=== PATIENT | female | born 1995 | race Caucasian/White ===

== ENCOUNTER → 2017-06-14 | Outpatient (CLI) | payer BC ==
[~2017-06-14] MED LIST: DICY10CA55 PO; ONDA8TAB62 SL
== END | disposition home or self-care (01) ==
LOC: C.LABBFT 09:56
PROVIDERS: ATTEND Nurse Practitioner Pediatrics
DX: K52.9 Noninfective gastroenteritis and colitis, unspecified (principal)

== ENCOUNTER 2017-06-26 15:20 | Emergency (ER) | payer BC ==
[~2017-06-26] VITALS: Ht 157.5 cm; Wt 77.2 kg
[2017-06-26 15:39] VITALS: BP 133/78; PULSE 87; TEMP 36.9; O2SAT 99; Ht 157.5 cm; Wt 77.2 kg
[2017-06-26 16:11] LABS: PREG INTERNAL NEGATIVE QC NEG CLEAR BACKGROUND; PREG INTERNAL POSITIVE QC POS CONTROL LINE
[2017-06-26 16:12] LABS: URINE APPEARANCE CLEAR (CLEAR); URINE BILIRUBIN NEG (NEG); URINE COLOR YELLOW; URINE NITRITE NEG (NEG); URINE SPECIFIC GRAVITY 1.008 (1.000-1.030); UROBILINOGEN NEG (NEG); ZZUR CULT IF INDIC CLEAN CATCH NO
[2017-06-26 16:30] LABS: MANUAL MICROSCOPIC REQUIRED? YES; REVIEW REQ? NO
[2017-06-26 16:56] LABS: URINE BACTERIA NEG (NEG); URINE RBC 0-4 /hpf (0-4); URINE WBC 0 /hpf (0-5)
[2017-06-27] MEDS ORDERED: ONDA8TAB62 SL (09:32)
[2017-06-27] MEDS ORDERED: DICY10CA55 PO (09:32)
== END 2017-06-26 17:35 | disposition left against medical advice (07) ==
LOC: C.EDB 15:22 → C.EDC 17:35
DX: Z53.21 Procedure and treatment not carried out due to patient leaving prior to being seen by health care provider (principal)

== ENCOUNTER 2017-06-27 08:34 | Emergency (ER) | payer BC ==
[~2017-06-27] VITALS: Ht 157.5 cm; Wt 77.2 kg
[2017-06-27 08:38] VITALS: TEMP 36.9; Ht 157.5 cm; Wt 77.2 kg
[2017-06-27] MEDS ORDERED: ONDANSETRON INJ 2 MG/ML 2 ML VIAL IV STA (09:12)
[2017-06-27] MEDS ORDERED: SODIUM CHLORIDE 0.9% 1000ML 1,000 ML IV STA (09:12)
[2017-06-27] MEDS ORDERED: MoRPHine SULFATE 10 MG/ML CARP/VIAL IV PRN (09:15)
[2017-06-27] MEDS ORDERED: OPTIRAY 320 IV PRN (09:30)
[2017-06-27] MEDS ORDERED: DICY10CA55 PO (09:32)
[2017-06-27] MEDS ORDERED: ONDA8TAB62 SL (09:32)
[2017-06-27 09:37] LABS: BASO % 0.2 %; BASO ABS # 0.01 K/uL (0-0.2); COMPLETE YES; EOS % 1.4 %; IG% 0.2 %; LYMPH % 36.6 %; LYMPH ABS # 2.43 K/uL (1.2-3.4); MEAN CELL VOLUME 85.6 fL (80-100); MEAN CORPUSCULAR HEMOGLOBIN 28.4 pg (25-34); MEAN CORPUSCULAR HGB CONC 33.2 g/dl (32-36); MEAN PLATELET VOLUME 9.9 fL (7.4-10.4); MONO % 6.3 %; NEUT % 55.3 %; PLATELET COUNT 388 K/uL (130-400); RED BLOOD COUNT 4.79 M/uL (4.2-5.4); WHITE BLOOD COUNT 6.64 K/uL (4.8-10.8)
[2017-06-27 09:47] LABS: URINE APPEARANCE CLEAR (CLEAR); URINE BILIRUBIN NEG (NEG); URINE COLOR YELLOW; URINE NITRITE NEG (NEG); URINE PH 7.5 (4.5-7.5); URINE SPECIFIC GRAVITY 1.009 (1.000-1.030); UROBILINOGEN NEG (NEG)
[2017-06-27 09:51] LABS: MANUAL MICROSCOPIC REQUIRED? NO; REVIEW REQ? NO
[2017-06-27 09:57] LABS: ALT/SGPT 44 U/L (12-78); BLOOD UREA NITROGEN 9 mg/dl (7-18); CALCIUM 9.6 mg/dl (8.5-10.1); CARBON DIOXIDE 29 mmol/L (21-32); CHLORIDE 104 mmol/L (98-107); CREATININE 0.91 mg/dl (0.60-1.20); GLUCOSE 100 mg/dl (70-99); POTASSIUM 3.9 mmol/L (3.5-5.1); SODIUM 137 mmol/L (136-145)
[2017-06-27 10:00] LABS: ALKALINE PHOSPHATASE 82 U/L (45-117); AST/SGOT 21 U/L (15-37)
--- NOTE | 2017-06-27 12:14 | DIAGNOSTIC IMAGING REPORT ---
CT ABD/PELVIS IV AND ORAL CONT CLINICAL HISTORY: Left-sided abdominal pain, nausea, vomiting, diarrhea. COMPARISON STUDY: None. TECHNIQUE: Following the IV administration of 93 mL of Optiray-320, CT scan of the abdomen and pelvis was performed from the lung bases to the proximal femurs. Images are reviewed in the axial, sagittal, and coronal planes. IV contrast was administered without complication. A dose lowering technique was utilized adhering to the principles of ALARA. CT DOSE: 801.61 mGycm FINDINGS: Lower chest: The heart is normal in size and configuration, without pericardial effusion. The lung bases and pleural spaces are clear. Liver: The contrast-enhanced liver is normal in size, contour, and attenuation. There is no intrahepatic biliary ductal dilatation. The hepatic veins and portal veins are patent. Gallbladder: Unremarkable. Spleen: Normal in size and attenuation. Pancreas: Unremarkable. Adrenal glands: Unremarkable. Kidneys: There is symmetric renal cortical enhancement. The kidneys are normal in size without hydronephrosis. Bowel: There are no transition zones indicate bowel obstruction. The appendix appears normal. There is no acute diverticulitis. Borderline wall thickening left colon, likely secondary to a nondistended segment Peritoneum: There is trace free pelvic fluid likely physiologic. No free air is visualized. Vasculature: The abdominal aorta is normal in course and caliber. Adenopathy: None. Pelvic viscera: The bladder, and pelvic viscera are unremarkable. Skeletal structures: No destructive osseous lesions are seen. IMPRESSION: 1. No acute intra-abdominal or pelvic findings 2. No evidence of bowel obstruction. No evidence of free air 3. Normal appendix. No evidence of acute diverticulitis. Electronically signed by: Zain Smith M.D. 06/27/2017 12:13 PM Dictated Date/Time: 06/27/2017 12:09 PM
[2017-06-27 13:00] VITALS: BP 128/77; PULSE 82; O2SAT 99
--- NOTE | 2017-06-27 17:18 | EMERGENCY ROOM VISIT NOTE ---
ED Visit Note First contact with patient: 08:41 Chief Complaint: Abdominal pain. History of Present Illness: Ms. Mejia is a set 22 year-old white female complaining of left mid to lower quadrant abdominal pain. Historically patient reports significant gastrointestinal diseases or abdominal surgeries Patient reports a ongoing nausea with one episode of vomiting that started 3 weeks ago typically in the morning hours. She describes her vomitus is clear water. Then 2 weeks ago she developed left middle quadrant to left lower quadrant abdominal pain. She does report her pain has been constant but has gradually increased in intensity. She is seen and new car get ready mechanic for her symptoms and she has been placed on Bentyl and Zofran and has had no relief of her discomfort but controlled her nausea. She is currently describing her pain as a sharp and stabbing sensation. She rates her discomfort 7/10. Her pain is nonradiating. Her pain worsens with flexion at the waist. She has not identified any alleviating factors related to the pain. She has not used any medications for her symptoms except those prescribed by the new car get ready mechanic. Associated with her pain she is also been having intermittent diarrhea with up to 4 bowel movements per day. She describes her diarrhea as a light soft stool without bright red blood or melena. Patient denies fevers, chills, sweats, skin eruptions, skin color changes, upper respiratory tract symptoms, shortness of breath, chest pain, decreased appetite, recent travel, recent antibiotic use, urinary symptoms, hematuria, vaginal bleeding, vaginal discharge, back/flank pain. Review of Systems: As noted above in history of present illness. All body systems were reviewed and found to be negative as noted above. Past Medical History: Bronchitis. Current Medications: As previously noted. Allergies to Medications: Patient denies. Social History: Patient is currently employed; she feels safe in her home environment; she admits to tobacco and alcohol use. Physical Examination: Vital Signs: Date Time Temp Pulse Resp B/P (MAP) Pulse Ox O2 Delivery O2 Flow Rate FiO2 06/27/17 13:00 82 20 128/77 99 06/27/17 11:55 88 18 135/81 97 Room Air 06/27/17 10:05 85 18 133/83 100 Room Air 06/27/17 08:38 36.9 92 20 141/86 99 Room Air GENERAL: 22-year-old female in mild distress due to pain, nontoxic-appearing, afebrile and hemodynamically stable. NEUROLOGICAL: Awake, alert and oriented to person, place and time. Answering questions appropriately and following commands. Normal gait. Good hand eye coordination. SKIN: Warm, dry and pink. No soft tissue eruptions or trauma noted. HEENT: Atraumatic and normocephalic. PERRLA. Sclera white and conjunctiva pink. Oral cavity moist and pink. Trachea midline. No jugular venous distention. BACK: No tenderness over the bony spine. No CVA tenderness. THORAX: Lungs sounds are clear to auscultation and equal bilaterally with symmetrical chest wall. HEART: Regular rate and rhythm. No gallops, rubs or murmurs are appreciated. ABDOMEN: Flat, soft and nontender. Positive bowel sounds in all quadrants. No guarding, rigidity or organomegaly. EXTREMITIES: Moves all extremities well on command and with purpose. All distal neurovascular statuses are intact and equal bilaterally. ED Course: Patient is assessed as noted above. Patient's medication list was reviewed. Laboratory Testing: Test 06/27/17 08:48 06/27/17 09:20 Range/Units Urine Color YELLOW Urine Appearance CLEAR CLEAR Urine pH 7.5 4.5-7.5 Urine Specific [place] 1.009 1.000-1.030 Urine Protein NEG NEG Urine Glucose (UA) NEG NEG Urine Ketones NEG NEG Urine Occult Blood NEG NEG Urine Nitrite NEG NEG Urine Bilirubin NEG NEG Urine Urobilinogen NEG NEG Urine Leukocyte Esterase NEG NEG Urine Test NEG NEG White Blood Count 6.64 4.8-10.8 K/uL Red Blood Count 4.79 4.2-5.4 M/uL Hemoglobin 13.6 12.0-16.0 g/dL Hematocrit 41.0 37-47 % Mean Corpuscular Volume 85.6 80-100 fL Mean Corpuscular Hemoglobin 28.4 25-34 pg Mean Corpuscular Hemoglobin Concent 33.2 32-36 g/dl Platelet Count 388 130-400 K/uL Mean Platelet Volume 9.9 7.4-10.4 fL Neutrophils (%) (Auto) 55.3 % Lymphocytes (%) (Auto) 36.6 % Monocytes (%) (Auto) 6.3 % Eosinophils (%) (Auto) 1.4 % Basophils (%) (Auto) 0.2 % Neutrophils # (Auto) 3.68 1.4-6.5 K/uL Lymphocytes # (Auto) 2.43 1.2-3.4 K/uL Monocytes # (Auto) 0.42 0.11-0.59 K/uL Eosinophils # (Auto) 0.09 0-0.5 K/uL Basophils # (Auto) 0.01 0-0.2 K/uL RDW Standard Deviation 40.3 36.4-46.3 fL RDW Coefficient of Variation 12.8 11.5-14.5 % Immature Granulocyte % (Auto) 0.2 % Immature Granulocyte # (Auto) 0.01 0.00-0.02 K/uL Sodium Level 137 136-145 mmol/L Potassium Level 3.9 3.5-5.1 mmol/L Chloride Level 104 98-107 mmol/L Carbon Dioxide Level 29 21-32 mmol/L Anion Gap 4.0 3-11 mmol/L Blood Urea Nitrogen 9 7-18 mg/dl Creatinine 0.91 0.60-1.20 mg/dl Est Creatinine Clear Calc Drug Dose 94.1 ml/min Estimated GFR () 104.5 Estimated GFR (Non- 90.2 BUN/Creatinine Ratio 10.0 10-20 Random Glucose 100 70-99 mg/dl Calcium Level 9.6 8.5-10.1 mg/dl Total Bilirubin 0.2 0.2-1 mg/dl Direct Bilirubin < 0.1 0-0.2 mg/dl Aspartate Amino Transf (AST/SGOT) 21 15-37 U/L Alanine Aminotransferase (ALT/SGPT) 44 12-78 U/L Alkaline Phosphatase 82 45-117 U/L Total Protein 8.6 6.4-8.2 gm/dl Albumin 4.2 3.4-5.0 gm/dl Lipase 94 73-393 U/L Contrast Abdominal/Pelvic CT: Was reviewed by myself and read by the radiologist showing no acute intra-abdominal or pelvic findings, no evidence of bowel obstruction, free air or acute diverticulitis. Normal-appearing appendix. Patient was hydrated with normal saline, she received 4 mg of morphine IV for pain and 4 mg of Zofran IV. Patient was reassessed multiple times during her stay in the emergency department. Patient's case was reviewed with Dr. Miles; we agreed on diagnostic approach , treatment, disposition and plan. Patient was educated about today's findings and instructed on her treatment plan ; she verbalizes understanding and agreement with this plan. Clinical Impression: Left lower quadrant abdominal pain. Vomiting and diarrhea. Decision-Making: Initially my differential diagnosis I considered constipation, diverticulitis, colitis, perforated viscus, ectopic , kidney stone, musculoskeletal disorder and other causes. Disposition: Patient discharged home in stable condition accompanied by her mother; prior to departure she was reassessed and subjectively reported she was feeling better and rated her overall discomfort 3/10. She was no longer nauseated and had no additional episodes of diarrhea. Patient should be noted she brought stool specimen into the ED and they were sent to the lab for outpatient evaluation by the new car get ready mechanic. Plan: Patient was encouraged to continue her current medications as prescribed by the new car get ready mechanic. Patient was encouraged use ibuprofen 650 mg every 6 hours as needed for pain. Patient was encouraged to bland diet for the next 48 hours and avoid stomach irritants. Patient was encouraged to follow-up with her new car get ready mechanic for specialty care and treatment in her stool culture results. Patient was encouraged return ED for worsening/uncontrolled pain, worsening vomiting/diarrhea, bloody stools, fevers or any new/concerning symptoms.
== END 2017-06-27 13:00 | disposition home or self-care (01) ==
LOC: C.EDB 08:36
DX: R10.32 Left lower quadrant pain (principal); R11.10 Vomiting, unspecified; R19.7 Diarrhea, unspecified; F17.200 Nicotine dependence, unspecified, uncomplicated

== ENCOUNTER → 2017-06-27 | Outpatient (CLI) | payer BC ==
[2017-07-02 15:48] LABS: CRYPTOSPORIDIUM AG TC 37213 NOT DETECTED (NOT DETECTED); O&P GIARDIA AG NOT DETECTED (NOT DETECTED); O&P SOURCE OTHER-STOOL
== END | disposition home or self-care (01) ==
LOC: C.LABSPEC 10:30
PROVIDERS: ATTEND Physician Assistant
DX: R19.7 Diarrhea, unspecified (principal)

== ENCOUNTER → 2017-07-01 | Outpatient (CLI) | payer BC ==
[2017-07-05 21:38] LABS: IGA SERUM 282 mg/dL (81-463); TIS TRANS IGA 1 U/mL (<4)
== END | disposition home or self-care (01) ==
LOC: C.LABBFT 08:51
PROVIDERS: ATTEND Physician Assistant
DX: R19.7 Diarrhea, unspecified (principal)

== ENCOUNTER → 2017-07-01 | Outpatient (CLI) | payer BC ==
--- NOTE | 2017-07-01 07:39 | DIAGNOSTIC IMAGING REPORT ---
ULTRASOUND ABDOMEN COMPLETE CLINICAL HISTORY: Nausea. Generalized abdominal pain. COMPARISON STUDY: Abdominal CT dated 06/27/2017. TECHNIQUE: Real-time, grayscale, and color flow sonography of the abdomen was performed. Images are reviewed in the transverse and longitudinal planes. FINDINGS: Liver: The liver is normal in size and echotexture. There is no intrahepatic biliary ductal dilatation. The main portal vein is patent. Gallbladder: The gallbladder is normal in appearance. No gallstones are identified. There is no gallbladder wall thickening or pericholecystic fluid. A sonographic Anand's sign is reportedly absent. The common bile duct measures up to 0.4 cm in diameter. Pancreas: Visualized portions of the pancreatic head and body are normal in appearance. Spleen: The spleen is normal in size and echotexture, measuring 11.4 cm in length. Kidneys: The kidneys are normal in size and echotexture. There is no hydronephrosis. The right kidney measures 8.8 cm in length and the left kidney measures 9.6 cm in length. No shadowing calculi are identified. Abdominal vasculature: Visualized portions of the abdominal aorta and IVC are normal in appearance. Ascites: None. IMPRESSION: Unremarkable sonographic assessment of the abdomen. Electronically signed by: Christopher Amaro M.D. 07/01/2017 7:38 AM Dictated Date/Time: 07/01/2017 7:36 AM
== END | disposition home or self-care (01) ==
LOC: C.ULTR 07:10
PROVIDERS: ATTEND Physician Assistant
DX: R11.0 Nausea (principal); R10.9 Unspecified abdominal pain

== ENCOUNTER → 2017-07-11 | Day surgery (SDC) | payer BC ==
[2017-07-07 08:03] VITALS: BMI 31.0
[~2017-07-11] VITALS: Ht 157.5 cm; Wt 77.7 kg
[~2017-07-11] MED LIST changes: +LIDOCAINE HCL 2% 2 ML VIAL (20MG/ML) ONE; +MIDAZOLAM HCL 1 MG/ML 2ML VIAL ONE; +PROPOFOL IV EMULSION 10 MG/ML 20 ML VIAL IV ONE; +SODIUM CHLORIDE 0.9% 500ML 500 ML IV ONE
[2017-07-11 12:50] VITALS: Ht 157.5 cm; Wt 77.7 kg
--- NOTE | 2017-07-11 13:04 | Endo History and Physical ---
History & Physical Date of Service: Jul 11, 2017. Chief Complaint: ABDOMINAL PAIN, DIARRHEA, NAUSEA Referring Physician: DR MICA OG History of Present Illness 22 yo CF who presents for EGD and colonoscopy secondary to abdominal pain, nausea, and diarrhea. Past Surgical History Hx Cardiac Surgery: No Hx Internal Defibrillator: No Hx Pacemaker: No Hx Abdominal Surgery: No Hx of Implantable Prosthesis: No Hx Cancer Surgery: No Hx Thoracic Surgery: No Hx Orthopedic: No Hx Urinary Tract Surgery: No Family History None Social History Smoking Status: Current Every Day Smoker Hx Substance Use: No Hx Alcohol Use: Yes (OCCASIONAL/SOCIAL) Allergies Coded Allergies: NO KNOWN DRUG ALLERGIES (Verified Allergy, Unknown, ., 07/07/17) [place] (Verified Allergy, Unknown, vomiting , 07/11/17) Current Medications Reported Home Medications Medications Dose Route/Sig Max Daily Dose Days Date Category Zofran Odt (Ondansetron HCl) 8 Mg Soltab 4 Mg SL Q4 PRN 06/27/17 Reported Bentyl (Dicyclomine Hcl) 10 Mg Cap 10 Mg PO Q6 06/27/17 Reported Vital Signs Weight (Kilograms): 77.73 Height (Feet): 5 Height (Inches): 2 Date Time Temp Pulse Resp B/P (MAP) Pulse Ox O2 Delivery O2 Flow Rate FiO2 07/11/17 12:48 36.8 106 16 127/76 (93) 99 Room Air Physical Exam General Appearance: WD/WN, no apparent distress Respiratory/Chest: Auscultation: breath sounds normal Cardiovascular: Heart Auscultation: RRR Abdomen: Bowel Sounds: normal Inspection & Palpation: soft, non-distended, no tenderness, guarding & rebound Assessment and Plan Assessment: 22 yo CF who presents for EGD and colonoscopy secondary to abdominal pain, nausea, and diarrhea. Plan: Proceed with EGD and colonoscopy.
--- NOTE | 2017-07-11 13:30 | Discharge Instructions ---
Endoscopy Patient Instructions Date / Procedure(s) Performed Jul 11, 2017. Colonoscopy, EGD Allergy Information Coded Allergies: NO KNOWN DRUG ALLERGIES (Verified Allergy, Unknown, ., 07/07/17) [place] (Verified Allergy, Unknown, vomiting , 07/11/17) Discharge Date / Findings Jul 11, 2017. EGD: Gastritis s/p biopsies, Duodenal biopsies Colonoscopy: Random Colon biopsies, Stool aspirate collected Medication Instructions 1) Start Omeprazole 20mg by mouth each morning 1/2 hour prior to breakfast. 2) OK to resume all medications today as prescribed Reported Home Medications Medications Dose Route/Sig Max Daily Dose Days Date Category Zofran Odt (Ondansetron HCl) 8 Mg Soltab 4 Mg SL Q4 PRN 06/27/17 Reported Bentyl (Dicyclomine Hcl) 10 Mg Cap 10 Mg PO Q6 06/27/17 Reported Provider Instructions Activity Restrictions - No exercising or heavy lifting for 24 hours. - Do not drink alcohol the day of the procedure. - Do not drive a car or operate machinery until the day after the procedure. - Do not make any important decisions or sign important papers in 24 hours after the procedure. Following Day: - Return to full activity which may include returning to work/school. Diet Start your diet with liquids and light foods (jello, soup, juice, toast). Then eat your usual diet if not nauseated. Treatment For Common After Affects For mild abdominal pain, bloating, or excessive gas: - Rest - Eat lightly - Lie on right side Follow-Up Information Follow-up with DR MICA OG as scheduled Anesthesia Information What You Should Know You have had a procedure that required some medicine to reduce anxiety and discomfort. This treatment is called moderate sedation. After receiving the treatment, you may be sleepy, but you will be able to breathe on your own. The effects of the treatment may last for several hours. Follow these instructions along with Activity/Diet recommendations noted above: * Do NOT do anything where dizziness or clumsiness would be dangerous. * Rest quietly at home today, then you can be up and about tomorrow. * Have a responsible person stay with you the rest of today. * You may have had an I.V. today. If so, you may take the dressing off later today. Recommendations Call your doctor if: * Trouble breathing * Continuous vomiting for more than 24 hours * Temperature above 101 degrees * Severe abdominal pain or bloating * Pain not relieved by pain medicine ordered * There is increased drainage or redness from any incision * A large amount of rectal bleeding greater than 2-3 tablespoons. (If you had a polyp/s removed or have hemorrhoids, a small amount of blood - from the rectum is to be expected.) * You have any unanswered questions or concerns. IN THE EVENT OF A SERIOUS EMERGENCY, GO TO THE NEAREST EMERGENCY ROOM Your discharge instructions were prepared by provider Tom Perry. Patient Instructions Signature Page Kateryna Mejia Patient (or Guardian) Signature/Date: I have read and understand the instructions given to me by my caregivers. Caregiver/RN/Doctor Signature/Date: The above-named patient and/or guardian has received patient instructions on this date. + Original Patient Signature Page (only) stays with chart. Please make copy for patient.
--- NOTE | 2017-07-11 13:34 | GI REPORT ---
Procedure Date: 07/11/2017 1:06 PM Procedure: Upper GI endoscopy Indications: Epigastric abdominal pain Medicines: Monitored Anesthesia Care Complications: No immediate complications. Estimated Blood Loss: Estimated blood loss: none. Procedure: Pre-Anesthesia Assessment: - Prior to the procedure, a History and Physical was performed, and patient medications and allergies were reviewed. The patient's tolerance of previous anesthesia was also reviewed. The risks and benefits of the procedure and the sedation options and risks were discussed with the patient. All questions were answered, and informed consent was obtained. Prior Anticoagulants: The patient has taken no previous anticoagulant or antiplatelet agents. ASA Grade Assessment: II - A patient with mild systemic disease. After reviewing the risks and benefits, the patient was deemed in satisfactory condition to undergo the procedure. After obtaining informed consent, the endoscope was passed under direct vision. Throughout the procedure, the patient's blood pressure, pulse, and oxygen saturations were monitored continuously. The scope was introduced through the mouth, and advanced to the second part of duodenum. The upper GI endoscopy was accomplished without difficulty. The patient tolerated the procedure well. Findings: The esophagus was normal. Localized mild inflammation characterized by erythema was found in the gastric antrum. Biopsies were taken with a cold forceps for histology. The examined duodenum was normal. Biopsies for histology were taken with a cold forceps for evaluation of celiac disease. Impression: - Normal esophagus. - Gastritis. Biopsied. - Normal examined duodenum. Biopsied. Recommendation: - Resume previous diet. - Continue present medications. - Await pathology results. - Return to GI office as previously scheduled. Tom Perry DO 07/11/2017 1:33:57 PM This report has been signed electronically. Note Initiated On: 07/11/2017 1:06 PM I attest to the content of the Intraoperative Record and orders documented therein, exceptions below
--- NOTE | 2017-07-11 13:36 | GI REPORT ---
Procedure Date: 07/11/2017 1:15 PM Procedure: Colonoscopy Indications: Chronic diarrhea Medicines: Monitored Anesthesia Care Complications: No immediate complications. Estimated Blood Loss: Estimated blood loss: none. Procedure: Pre-Anesthesia Assessment: - Prior to the procedure, a History and Physical was performed, and patient medications and allergies were reviewed. The patient's tolerance of previous anesthesia was also reviewed. The risks and benefits of the procedure and the sedation options and risks were discussed with the patient. All questions were answered, and informed consent was obtained. Prior Anticoagulants: The patient has taken no previous anticoagulant or antiplatelet agents. ASA Grade Assessment: II - A patient with mild systemic disease. After reviewing the risks and benefits, the patient was deemed in satisfactory condition to undergo the procedure. After I obtained informed consent, the scope was passed under direct vision. Throughout the procedure, the patient's blood pressure, pulse, and oxygen saturations were monitored continuously. The scope was introduced through the anus and advanced to the terminal ileum. The colonoscopy was performed without difficulty. The patient tolerated the procedure well. The quality of the bowel preparation was good. The terminal ileum, ileocecal valve, appendiceal orifice, and rectum were photographed. Findings: The colon (entire examined portion) appeared normal. Several random biopsies were obtained with cold forceps for histology in the entire colon. Fluid aspiration for cytology was performed. Impression: - The entire examined colon is normal. Fluid aspiration performed. - Several random biopsies were obtained in the entire colon. Recommendation: - Resume previous diet. - Continue present medications. - Repeat colonoscopy for surveillance based on pathology results. - Return to primary care physician as previously scheduled. Tom Perry, 07/11/2017 1:35:42 PM This report has been signed electronically. Note Initiated On: 07/11/2017 1:15 PM I attest to the content of the Intraoperative Record and orders documented therein, exceptions below
[2017-07-11 13:59] VITALS: BP 121/69; PULSE 86; O2SAT 97
--- NOTE | 2017-07-11 13:59 | Anesthesiology Progress Note ---
Anesthesia Post Op Note Date & Time Jul 11, 2017 at 13:58 Vital Signs Pain Intensity: 0 Vital Signs Past 12 Hours Date Time Temp Pulse Resp B/P (MAP) Pulse Ox O2 Delivery O2 Flow Rate FiO2 07/11/17 13:44 91 18 128/80 (96) 96 Room Air 07/11/17 13:29 114 18 115/70 (85) 96 Room Air 07/11/17 12:48 36.8 106 16 127/76 (93) 99 Room Air Notes Mental Status: alert / awake / arousable, participated in evaluation Pt Amnestic to Procedure: Yes Nausea / Vomiting: adequately controlled Pain: adequately controlled Airway Patency, RR, SpO2: stable & adequate BP & HR: stable & adequate Hydration State: stable & adequate Anesthetic Complications: no major complications apparent
[2017-07-14 17:22] LABS: O&P GIARDIA AG NOT DETECTED (NOT DETECTED)
== END | disposition home or self-care (01) ==
LOC: C.GI 12:19
PROVIDERS: ATTEND Internal Medicine
DX: K52.9 Noninfective gastroenteritis and colitis, unspecified (principal); K29.50 Unspecified chronic gastritis without bleeding; F17.200 Nicotine dependence, unspecified, uncomplicated; Z79.899 Other long term (current) drug therapy

== ENCOUNTER → 2017-07-15 | Outpatient (CLI) | payer BC ==
[~2017-07-15] MED LIST changes: -LIDOCAINE HCL 2% 2 ML VIAL (20MG/ML) ONE; -MIDAZOLAM HCL 1 MG/ML 2ML VIAL ONE; -PROPOFOL IV EMULSION 10 MG/ML 20 ML VIAL IV ONE; +SINCALIDE INJ 1.6 MCG in SODIUM CHLORIDE 0.9% 100ML 100 ML IV ONE; -SODIUM CHLORIDE 0.9% 500ML 500 ML IV ONE
--- NOTE | 2017-07-15 10:24 | DIAGNOSTIC IMAGING REPORT ---
NUCLEAR HEPATOBILIARY SCAN WITH EJECTION FRACTION IMAGING CLINICAL HISTORY: Diarrhea. Right upper quadrant abdominal pain. COMPARISON STUDY: Abdominal ultrasound dated 07/01/2017. TECHNIQUE: Dynamic images of the liver and anterior abdomen were obtained every 5 minutes for a total of 60 minutes following the IV administration of 5.5mCi of technetium 99m Choletec. 1.6 mcg of sincalide was then injected with additional images acquired every 5 minutes for 45 minutes to calculate the gallbladder ejection fraction. FINDINGS: The hepatobiliary scan shows prompt and homogeneous hepatic uptake. There is visualized activity within the intra and extrahepatic biliary tree at 10 minutes, and within the gallbladder at 10 minutes. There is normal biliary to bowel transit, with small bowel visualized by 35 minutes. On the sincalide imaging, the gallbladder ejection fraction was measured at 89%. IMPRESSION: 1. Unremarkable nuclear hepatobiliary scan. There is no scintigraphic evidence of cholecystitis. 2. The gallbladder ejection fraction measured 89% which is normal. Electronically signed by: Christopher Amaro M.D. 07/15/2017 10:22 AM Dictated Date/Time: 07/15/2017 10:20 AM
== END | disposition home or self-care (01) ==
LOC: C.NUCL 07:35
PROVIDERS: ATTEND Physician Assistant
DX: R19.7 Diarrhea, unspecified (principal); R10.9 Unspecified abdominal pain

== ENCOUNTER → 2018-02-04 | Outpatient (CLI) | payer BC ==
[~2018-02-04] MED LIST changes: -SINCALIDE INJ 1.6 MCG in SODIUM CHLORIDE 0.9% 100ML 100 ML IV ONE
[2018-02-04 10:51] LABS: LUTEINIZING HORMONE 7.29 IU/L; PROLACTIN 20.19 ng/mL
[2018-02-04 10:52] LABS: FOLLICLE STIMULAT HORMONE 2.56 IU/L
== END | disposition home or self-care (01) ==
LOC: C.LAB1850 09:32
PROVIDERS: ATTEND Physician Assistant
DX: N92.6 Irregular menstruation, unspecified (principal)

== ENCOUNTER 2025-02-22 16:29 | Inpatient (IN) ==
[2025-02-22] MEDS ORDERED: CALCIUM CARBONATE 500 MG CHEWABLE TAB PO PRN ×2 (17:26→22:58)
[2025-02-22] MEDS ORDERED: LIDOCAINE 1% LOCAL 20 ML VIAL INFIL PRN (17:26)
[2025-02-22] MEDS ORDERED: ACETAMINOPHEN 500 MG TAB PO PRN (17:26)
[2025-02-22] MEDS ORDERED: OXYTOCIN 30 UNITS/NSS 30 UNITS/500 ML BAG IV PRN (17:26)
[2025-02-22] MEDS: LACTATED RINGER'S 1,000 ML IV PRN (17:33)
[2025-02-22 18:16] LABS: Hematocrit (blood only) 33.9 % (37.0-47.0); Hemoglobin 11.3 g/dl (12.0-16.0); Mean Corpuscular Hemoglobin 28.1 pg (25.0-34.0); Mean Corpuscular Hgb Conc 33.3 g/dL (32.0-36.0); Mean Corpuscular Volume 84.3 fL (80.0-100.0); Mean Platelet Volume 11.5 fL (9.4-12.4); Platelet Count 260 K/uL (130-400); RDW Coefficient of Variation 15.2 % (11.5-14.5); RDW Standard Deviation 46.1 fL (36.4-46.3); Red Blood Count 4.02 M/uL (4.20-5.40); White Blood Count 11.46 K/ul (4.8-10.8)
--- NOTE | 2025-02-22 20:17 | Anesthesiology Consultation ---
Date of Service February 22, 2025 Assessment & Plan ASA ASA2 Proposed Anesthesia Anesthesia Type: Spinal (pt 9.5 cm asked to perform a spinal to help with pain) Risk / Benefits Reviewed With: PT / POA / Parent / Guardian, Accepts Plan and Informed Consent Obtained History Height/Weight Height: 5 ft 2 in Weight: 85.729 kg Allergies Allergy/AdvReac Type Severity Reaction Status Date / Time orange Allergy Unknown Hives, Verified 02/22/25 17:36 nausea and vomiting Medications Home Medications Medication Instructions Recorded Confirmed Last Taken aspirin 81 mg tablet,delayed 81 mg PO DAILY 12/23/24 02/22/25 02/22/25 08:00 release vit,calcium 93-ferrous tab PO 12/23/24 02/22/25 02/22/25 08:00 fum 9 mg iron-folic acid 267 mg tablet ( Formula) Active Medications Generic Name Dose Route Start Last Admin Trade Name Freq PRN Reason Stop Dose Admin Lactated Ringer's 1,000 mls @ 125 mls/hr 02/22/25 17:26 02/22/25 20:50 Lr IV 02/23/25 17:25 125 mls/hr .Q8H PRN Administration L&D Protocol Protocol Past Medical History Medical History Gastritis determined by endoscopy Depression Exercise / Class Metabolic Activity II 4-5 Yardwork/Stairs/Walk up hill Past Family History Family History Denies family history of Ovarian cancer Breast cancer Colorectal cancer Past Surgical History Surgical History S/P endoscopy S/P colonoscopy Past Anesthesia History No Hx of Anesthesia Complications and No Family Hx of Anesthesia Complications History of PONV No Hx of PONV and No Hx of Motion Sickness Social History Smoking Status: Current some day smoker Smoking cigarettes per day: 6 Do You Dip or Chew Tobacco: No Hx Alcohol Use: Yes Hx Substance Use: No Review of Systems denies fever/cough/ colds/ chest pain/ SOB/ LUCIEN denies LUCIEN Physical Exam Vital Signs Last Vital Signs Temp 36.7 C 02/22/25 19:02 Pulse 88 02/22/25 20:50 Resp 22 02/22/25 19:02 BP 139/74 02/22/25 20:50 Pulse Ox 100 02/22/25 20:50 ENMT Mouth: no TMJ abnormality and no dentition abnormality Thyromental Distance: > or= 3.5 Finger Breadths Mallampati Class: II Neck neck extension not limited Respiratory normal respiratory effort; no respiratory distress Auscultation: lungs clear to auscultation bilaterally Cardiovascular Rate/Rhythm: regular rate and regular rhythm Neurologic moves all extremities Psychiatric Orientation: alert and oriented x 3 Testing Laboratory Results 02/22/25 17:39
[2025-02-22] MEDS: diphenhydrAMINE 50 MG/ML VIAL IV STA (20:23)
[2025-02-22] MEDS: BUPIVACAINE 0.25% PF 30 ML VIAL ONE (20:44)
--- NOTE | 2025-02-22 20:52 | Anesthesiology Progress Note ---
Date of Service February 22, 2025 Anesthesia Post Procedure Vital Signs Vital Signs: Temp Pulse Resp BP Pulse Ox 02/22/25 20:50 100 02/22/25 20:50 88 02/22/25 20:50 92 H 139/74 02/22/25 20:48 100 H 134/73 92 02/22/25 20:47 103 H 150/70 H 02/22/25 20:46 103 H 140/70 02/22/25 20:45 107 H 99 02/22/25 20:44 97 H 140/77 02/22/25 20:40 96 02/22/25 20:40 139 H 02/22/25 20:40 137 H 94 02/22/25 20:35 113 H 97 02/22/25 19:02 22 02/22/25 19:02 36.7 C 96 H 22 155/89 H 02/22/25 16:40 37.0 C 86 20 156/83 H Transfer of Care Handoff Completed per policy Notes Mental Status: alert / awake / arousable and participated in evaluation Patient Amnestic to Procedure: Yes Nausea / Vomiting: adequately controlled Pain: adequately controlled Airway Patency, RR, SpO2: stable & adequate BP & HR: stable & adequate Hydration State: stable & adequate Neuraxial Anesthesia: was administered and sensory block is resolving Anesthetic Complications: no major complications apparent and Pt Satisfied with anesthetic care Notes: pt vss after low dose spinal
[2025-02-22] MEDS ORDERED: PHENYLEPHRINE HCL 25 MG/250 ML NSS IV ONE (21:32)
[2025-02-22] MEDS ORDERED: OXYTOCIN 10 UNITS/ML VIAL ONE (21:32)
[2025-02-22] MEDS ORDERED: fentaNYL citrate PF 100 MCG/2 ML VIAL ONE (21:32)
[2025-02-22] MEDS ORDERED: MoRPHine SULFATE PF 1 MG/ML 10 ML AMP/VIAL ONE (21:33)
[2025-02-22] MEDS ORDERED: DEXAMETHASONE SOD INJ 4 MG/ML VIAL ONE (21:41)
[2025-02-22] MEDS ORDERED: ONDANSETRON INJ 2 MG/ML 2 ML VIAL ONE (21:41)
[2025-02-22] MEDS ORDERED: ePHEDrine sulfate 50 MG/ML AMP IV PRN (21:45)
[2025-02-22] MEDS ORDERED: HYDROmorphone INJ 0.5 MG/0.5 ML SYR IV PRN (21:45)
[2025-02-22] MEDS ORDERED: diphenhydrAMINE 50 MG/ML VIAL IV PRN (21:45)
[2025-02-22] MEDS ORDERED: MoRPHine SULFATE 2 MG/ML CARP IV PRN (21:45)
[2025-02-22] MEDS ORDERED: NALBUPHINE HCL INJ 10 MG/ML AMP IV PRN (21:45)
[2025-02-22] MEDS ORDERED: NALOXONE HCL 1 MG in SODIUM CHLORIDE 0.9% 1,000 ML IV PRN (21:45)
[2025-02-22] MEDS ORDERED: NALOXONE HCL 0.08 MG in SYRINGE 1.8 ML IV PRN (21:45)
[2025-02-22] MEDS ORDERED: ONDANSETRON INJ 2 MG/ML 2 ML VIAL IV PRN (21:45)
[2025-02-22] MEDS ORDERED: NALOXONE HCL 0.4 MG/1 ML VIAL/CARP IV PRN (21:45)
[2025-02-22] MEDS ORDERED: DC INTRASPINAL MORPHINE SCH (21:45)
[2025-02-22] MEDS ORDERED: NO NARCOTICS OR SEDATIVES SCH (21:45)
[2025-02-22] MEDS: AZITHROMYCIN 500 MG/255 ML BAG IV SCH (22:31)
[2025-02-22] MEDS: ceFAZolin 2000MG 2,000 MG/15 ML SYR IV SCH (22:32)
[2025-02-22] MEDS: CITRIC ACID/SODIUM CITRATE 15 ML UDC PO SCH (22:32)
[2025-02-22] MEDS: diphenhydrAMINE 50 MG/ML VIAL ONE (22:32)
[2025-02-22] MEDS ORDERED: SENNA 8.6 MG TAB PO PRN (22:58)
[2025-02-22] MEDS ORDERED: BENZOCAINE 20% SPRY 85 APPLN/85 GM CAN EXT PRN (22:58)
[2025-02-22] MEDS ORDERED: HYDROCORTISONE ACETATE 25 MG SUPP PR PRN (22:58)
--- NOTE | 2025-02-22 23:04 | Operative Report ---
Post Operative Report Pre & Post Diagnosis Operation Date: 02/22/25 22:00 Pre-Op Diagnosis: intolerance of labor, maternal intolerance of labor desiring Post-Op Diagnosis: same as pre-op I identified the patient and participated in the time-out.: Yes Procedure Operation Date: 02/22/25 22:00 Actual Procedures p Section in OR for of live male child @2222(Bilateral) - Santhosh Talley MD Surgeon Santhosh Talley MD Building Certifier L&D staff Quantitative Blood Loss (QBL) Per QBL in chart Findings Consistent with Post-Op Diagnosis Specimens Placenta Indications Patient initially progressed to 9 to 9.5 cm dilated with a strong urge to push. We attempted to push to reduce the cervix but was unable to do so. Patient continued to have a painful contractions difficulty controlling pushing which developed cervical swelling. Patient was agreeable to a spinal for pain control which lasted about 30 minutes in total and then patient was having severe pain again. Cervix was then noted to be 8 cm with swelling throughout the cervix. At that time there was no be tachycardia minimal variability and recurrent late decelerations. We discussed options at that point and discussed option for epidural versus proceeding with a primary section. After review of current findings patient desired proceeding with a primary in addition to the intolerance of labor. Consent forms reviewed and signed Description of Procedure Patient was taken the operating room after consent was ensured. Upon presentation she was properly identified. Anesthesia obtained and patient prepped and draped in normal sterile fashion. Preprocedural timeout was performed. A Pfannenstiel incision was made with a knife. This was carried down to underlying fascia with the Bovie and blunt dissection. The fascia was nicked at the midline with a knife and extended laterally with blunt dissection. Abdominal cavity was entered bluntly and placed on stretch to provide adequate room for delivery. A low transverse uterine incision was made with a knife. Breech presentation was confirmed. Caudal end of the was delivered without difficulty. Internal rotation at the hip to deliver the bilateral feet. Delivery continue to level shoulder and arms were internally rotated at the shoulder to deliver both arms atraumatically. And quickly followed and was noted to be vigorous soon after delivery. The cord was double clamped and cut and taken to the waiting nursery staff. Attention was turned to delivery of the placenta which delivered intact with three-vessel cord gentle cord traction. Uterus was exteriorized and several passes were made to remove any remaining membranes with a dry lap. Hysterotomy was reapproximated with 0 Vicryl continuous running lock stitch with a second imbricating layer performed. Excellent hemostasis noted. Posterior cul-de-sac cleaned of clots and debris's. Uterus returned maternal abdomen and right left paracolic gutters cleaned of clots and debris's. Hysterotomy remained hemostatic. Subcutaneous, fascia and muscle layers inspected noted be hemostatic. Fascia was reapproximated 0 Vicryl continuous running stitch. Subcutaneous layer reapproximated 2 layers using 2-0 plain. Skin reapproximated with 3-0 Vicryl and continuous subcuticular stitch. Dermabond placed on top. Both mother and in stable condition at the completion of the case. Needle sponge and in strument counts correct at the completion of the case. No complications noted and blood loss per QBL in chart. I attest to the content of the Intraoperative Record and any orders documented therein. Any exceptions are noted below. OB Procedure Charges 63104
--- NOTE | 2025-02-22 23:08 | Anesthesiology Progress Note ---
Date of Service February 22, 2025 Anesthesia Post Procedure Vital Signs Vital Signs: Temp Pulse Resp BP Pulse Ox 02/22/25 23:04 89 101/59 L 99 02/22/25 21:58 129 H 168/94 H 02/22/25 21:57 137 H 177/126 H 02/22/25 21:56 120 H 97 02/22/25 21:51 140 H 80 L 02/22/25 21:50 70 L 02/22/25 21:50 130 H 02/22/25 21:50 134 H 176/102 H 02/22/25 21:45 93 02/22/25 21:45 133 H 02/22/25 21:45 143 H 84 L 02/22/25 21:40 147 H 95 02/22/25 21:35 96 02/22/25 21:35 136 H 02/22/25 21:35 121 H 147/88 H 02/22/25 21:30 131 H 97 02/22/25 21:25 104 H 95 02/22/25 21:20 112 H 158/95 H 97 02/22/25 21:15 115 H 98 02/22/25 21:10 95 H 95 02/22/25 21:05 98 02/22/25 21:05 97 H 02/22/25 21:05 102 H 123/66 02/22/25 21:04 90 133/63 02/22/25 21:02 89 L 02/22/25 21:02 100 H 02/22/25 21:02 100 H 137/83 02/22/25 21:00 20 02/22/25 21:00 20 02/22/25 21:00 100 02/22/25 21:00 89 02/22/25 21:00 89 145/85 H 02/22/25 20:58 95 H 141/84 H 02/22/25 20:56 87 139/77 02/22/25 20:55 88 100 02/22/25 20:54 93 H 136/77 02/22/25 20:52 86 137/73 02/22/25 20:50 100 02/22/25 20:50 88 02/22/25 20:50 92 H 139/74 02/22/25 20:48 100 H 20 134/73 92 02/22/25 20:47 103 H 150/70 H 02/22/25 20:46 103 H 140/70 02/22/25 20:45 107 H 99 02/22/25 20:44 97 H 140/77 02/22/25 20:40 96 02/22/25 20:40 139 H 02/22/25 20:40 137 H 94 02/22/25 20:35 113 H 97 02/22/25 19:02 22 02/22/25 19:02 36.7 C 96 H 22 155/89 H 02/22/25 16:40 37.0 C 86 20 156/83 H Transfer of Care Handoff Completed per policy Notes Mental Status: alert / awake / arousable and participated in evaluation Patient Amnestic to Procedure: Yes Nausea / Vomiting: adequately controlled Pain: adequately controlled Airway Patency, RR, SpO2: stable & adequate BP & HR: stable & adequate Hydration State: stable & adequate Neuraxial Anesthesia: was administered and sensory block is resolving Anesthetic Complications: no major complications apparent and Pt Satisfied with anesthetic care
[2025-02-22] MEDS: DIPHTHER/TETAN/PERTUS Vaccine (Tdap, Adol/Adult) 0.5mL IM ONE (23:14)
[2025-02-22] MEDS: KETOROLAC 30 MG/ML VIAL IV SCH (23:24)
[2025-02-22] MEDS: OXYTOCIN 20 UNITS/LR 1,002 ML IV SCH (23:59)
[2025-02-23] MEDS: MoRPHine SULFATE PF 1 MG/ML 10 ML AMP/VIAL INT SPINAL ONE (03:51)
[2025-02-23] MEDS: LACTATED RINGER'S 1,000 ML IV SCH (03:52)
[2025-02-23] MEDS: ACETAMINOPHEN 325 MG TAB PO SCH (05:15)
[2025-02-23 06:46] LABS: Hemoglobin 9.9 g/dl (12.0-16.0)
--- NOTE | 2025-02-23 07:27 | Obstetrical Progress Note ---
Date of Service <Claudio Uriarte MD - Last Filed: 02/23/25 08:16> February 23, 2025 Assessment & Plan <Claudio Uriarte MD - Last Filed: 02/23/25 08:16> (1) care and examination: POD1 s/p LTCS at 39 5/7 wga: Stable. Rh+, gbs neg, ri, vitals & H/H stable Continue routine care, OOB and ambulation, diet as tolerated <Santhosh Talley MD - Last Filed: 02/24/25 15:58> (1) care and examination: Subjective <Claudio Uriarte MD - Last Filed: 02/23/25 08:16> Patient is a 29yo who is POD#1 following delivery at 39 5/7 weeks. Abd pain/cramping well managed on analgesics Robb out, has been voiding w/o issue Tolerating meals Ambulating normally No BM or passing gas yet Lochia minimal, diminishing Planning to breastfeed. Constitutional: no fever, no chills or no sweats Respiratory: no dyspnea Cardiovascular: no chest pain, no palpitations or no calf pain Breast: no breast pain Gastrointestinal: no nausea or no vomiting Genitourinary (female): no dysuria Neurologic: no headache(s) no changes in vision, no headaches Physical Exam <Claudio Uriarte MD - Last Filed: 02/23/25 08:16> General: Alert, oriented. No acute distress. Cardiac: Regular rate and rhythm, no murmurs, rubs, or gallops. Respiratory: Clear to auscultation bilaterally. No increased work of breathing. Symmetrical chest rise. No respiratory distress. Abdomen: Soft, nontender, nondistended. Bowel sounds present. Uterus: Uterine fundus firm, nontender, palpable at the level of the umbilicus. Surgical scar clean and healing well. Lower extremities: No lower extremity edema or swelling. No deep calf pain. Results & Data <Claudio Uriarte MD - Last Filed: 02/23/25 08:16> Vital Signs (Past 12 Hours) Vital Signs Temp Pulse Pulse Resp BP BP Pulse Ox 02/23/25 05:20 36.8 C 84 20 154/95 H 98 02/23/25 04:15 16 98 02/23/25 03:15 18 95 02/23/25 02:20 36.9 C 101 H 18 146/89 H 99 02/23/25 01:15 36.9 C 88 18 148/86 H 100 02/23/25 01:05 85 150/78 H 02/23/25 01:04 16 02/23/25 01:04 97 H 100 02/23/25 00:59 94 H 100 02/23/25 00:54 90 99 02/23/25 00:49 98 H 99 02/23/25 00:44 98 H 99 02/23/25 00:39 102 H 100 02/23/25 00:34 18 02/23/25 00:34 97 H 158/86 H 99 02/23/25 00:29 102 H 99 02/23/25 00:24 91 H 153/91 H 99 02/23/25 00:19 101 H 99 02/23/25 00:14 80 139/86 99 02/23/25 00:09 106 H 99 02/23/25 00:05 100 H 137/94 02/23/25 00:04 18 02/23/25 00:04 98 H 98 02/22/25 23:59 100 H 99 02/22/25 23:56 80 127/70 02/22/25 23:55 90 135/95 02/22/25 23:54 16 02/22/25 23:54 89 99 02/22/25 23:49 98 H 98 02/22/25 23:44 18 02/22/25 23:44 90 122/76 100 02/22/25 23:39 86 100 02/22/25 23:34 18 02/22/25 23:34 96 H 118/75 100 02/22/25 23:32 93 H 93 02/22/25 23:29 86 100 02/22/25 23:25 81 118/69 02/22/25 23:24 16 02/22/25 23:24 85 100 02/22/25 23:19 96 H 100 02/22/25 23:14 18 02/22/25 23:14 95 H 104/56 L 97 02/22/25 23:09 103 H 99 02/22/25 23:04 36.4 C L 18 02/22/25 23:04 89 101/59 L 99 02/22/25 21:58 129 H 168/94 H 02/22/25 21:57 137 H 177/126 H 02/22/25 21:56 120 H 97 02/22/25 21:51 140 H 80 L 02/22/25 21:50 70 L 02/22/25 21:50 130 H 02/22/25 21:50 134 H 176/102 H 02/22/25 21:45 93 02/22/25 21:45 133 H 02/22/25 21:45 143 H 84 L 02/22/25 21:40 147 H 95 02/22/25 21:35 96 02/22/25 21:35 136 H 02/22/25 21:35 121 H 147/88 H 02/22/25 21:30 131 H 97 02/22/25 21:25 104 H 95 02/22/25 21:20 112 H 158/95 H 97 02/22/25 21:15 115 H 98 02/22/25 21:10 95 H 95 02/22/25 21:05 98 02/22/25 21:05 97 H 02/22/25 21:05 102 H 123/66 02/22/25 21:04 90 133/63 02/22/25 21:02 89 L 02/22/25 21:02 100 H 02/22/25 21:02 100 H 137/83 02/22/25 21:00 20 02/22/25 21:00 20 02/22/25 21:00 100 02/22/25 21:00 89 02/22/25 21:00 89 145/85 H 02/22/25 20:58 95 H 141/84 H 02/22/25 20:56 87 139/77 02/22/25 20:55 88 100 02/22/25 20:54 93 H 136/77 02/22/25 20:52 86 137/73 02/22/25 20:50 100 02/22/25 20:50 88 02/22/25 20:50 92 H 139/74 02/22/25 20:48 100 H 20 134/73 92 02/22/25 20:47 103 H 150/70 H 02/22/25 20:46 103 H 140/70 02/22/25 20:45 107 H 99 02/22/25 20:44 97 H 140/77 02/22/25 20:40 96 02/22/25 20:40 139 H 02/22/25 20:40 137 H 94 02/22/25 20:35 113 H 97 O2 Del Method 02/23/25 05:20 Room Air 02/23/25 04:15 02/23/25 03:15 02/23/25 02:20 Room Air 02/23/25 01:15 Room Air 02/23/25 01:05 02/23/25 01:04 02/23/25 01:04 02/23/25 00:59 02/23/25 00:54 02/23/25 00:49 02/23/25 00:44 02/23/25 00:39 02/23/25 00:34 02/23/25 00:34 02/23/25 00:29 02/23/25 00:24 02/23/25 00:19 02/23/25 00:14 02/23/25 00:09 02/23/25 00:05 02/23/25 00:04 02/23/25 00:04 02/22/25 23:59 02/22/25 23:56 02/22/25 23:55 02/22/25 23:54 02/22/25 23:54 02/22/25 23:49 02/22/25 23:44 02/22/25 23:44 02/22/25 23:39 02/22/25 23:34 02/22/25 23:34 02/22/25 23:32 02/22/25 23:29 02/22/25 23:25 02/22/25 23:24 02/22/25 23:24 02/22/25 23:19 02/22/25 23:14 02/22/25 23:14 02/22/25 23:09 02/22/25 23:04 02/22/25 23:04 02/22/25 21:58 02/22/25 21:57 02/22/25 21:56 02/22/25 21:51 02/22/25 21:50 02/22/25 21:50 02/22/25 21:50 02/22/25 21:45 02/22/25 21:45 02/22/25 21:45 02/22/25 21:40 02/22/25 21:35 02/22/25 21:35 02/22/25 21:35 02/22/25 21:30 02/22/25 21:25 02/22/25 21:20 02/22/25 21:15 02/22/25 21:10 02/22/25 21:05 02/22/25 21:05 02/22/25 21:05 02/22/25 21:04 02/22/25 21:02 02/22/25 21:02 02/22/25 21:02 02/22/25 21:00 02/22/25 21:00 02/22/25 21:00 02/22/25 21:00 02/22/25 21:00 02/22/25 20:58 02/22/25 20:56 02/22/25 20:55 02/22/25 20:54 02/22/25 20:52 02/22/25 20:50 02/22/25 20:50 02/22/25 20:50 02/22/25 20:48 02/22/25 20:47 02/22/25 20:46 02/22/25 20:45 02/22/25 20:44 02/22/25 20:40 02/22/25 20:40 02/22/25 20:40 02/22/25 20:35 Laboratory Results 02/23/25 06:08 Supervising Physician <Santhosh Talley MD - Last Filed: 02/24/25 15:58> Co-Signing Physician Notes Patient seen with resident and agree with the above findings and plan. Routine care Resident Activity Tracking <Claudio Uriarte MD - Last Filed: 02/23/25 08:16> Resident Involvement: Resident Care Provided Care Provided: Adult Hospital Medicine and OB Delivery
[2025-02-23 07:47] LABS: Platelet Count 245 K/uL (130-400)
[2025-02-23] MEDS: FERROUS SULFATE 325 MG TAB PO SCH (07:57)
[2025-02-23] MEDS: PRENATAL VITAMIN 1 TAB PO SCH (07:57)
[2025-02-23] MEDS: DOCUSATE SODIUM 100 MG CAP PO SCH (07:58)
[2025-02-23] MEDS: SIMETHICONE 80 MG CHEW PO SCH (07:58)
[2025-02-23 08:20] LABS: Creatinine Clr Calc Pharmacy 137.2 ml/min
[2025-02-23] MEDS ORDERED: diphenhydrAMINE Capsule 25 MG CAP PO PRN (15:46)
[2025-02-23] MEDS ORDERED: PROMETHAZINE 12.5 MG/50.5 ML BAG IV PRN (15:46)
[2025-02-23] MEDS ORDERED: ONDANSETRON INJ 2 MG/ML 2 ML VIAL IV PRN (15:46)
[2025-02-23] MEDS ORDERED: diphenhydrAMINE 50 MG/ML VIAL IV PRN (15:46)
[2025-02-23] MEDS ORDERED: oxyCODONE HCL IR 5 MG TAB (IMMEDIATE RELEASE) PO PRN (15:46)
[2025-02-23] MEDS ORDERED: HYDROmorphone INJ 0.5 MG/0.5 ML SYR IV PRN (15:46)
[2025-02-23] MEDS: bisacodyL 5 MG TABEC PO SCH (21:33)
[2025-02-23] MEDS ORDERED: KETOROLAC 30 MG/ML VIAL IV PRN (23:00)
[2025-02-23] MEDS: IBUPROFEN 600 MG TAB PO SCH (23:35)
[2025-02-24] MEDS ORDERED: bisacodyL 10 MG SUPP PR PRN
--- NOTE | 2025-02-24 06:19 | Obstetrical Progress Note ---
Date of Service <Claudio Uriarte MD - Last Filed: 02/24/25 07:32> February 24, 2025 Assessment & Plan <Claudio Uriarte MD - Last Filed: 02/24/25 07:32> (1) care and examination: POD2 s/p LTCS at 39 5/7 wga: Stable. Rh+, gbs neg, ri, vitals & H/H stable Continue routine care, OOB and ambulation, diet as tolerated Plan for DC later today <Marilee Garcia MD - Last Filed: 02/24/25 07:34> (1) care and examination: Subjective <Claudio Uriarte MD - Last Filed: 02/24/25 07:32> Patient is a 29yo who is POD#2 following delivery at 39 5/7 weeks. Abd pain/cramping well managed on analgesics Robb out, has been voiding w/o issue Tolerating meals Ambulating normally No BM, +passing gas Lochia minimal, diminishing Planning to breastfeed. Constitutional: no fever, no chills or no sweats Respiratory: no dyspnea Cardiovascular: no chest pain, no palpitations or no calf pain Breast: no breast pain Gastrointestinal: no nausea or no vomiting Genitourinary (female): no dysuria Neurologic: no headache(s) no changes in vision, no headaches Physical Exam <Claudio Uriarte MD - Last Filed: 02/24/25 07:32> General: Alert, oriented. No acute distress. Cardiac: Regular rate and rhythm, no murmurs, rubs, or gallops. Respiratory: Clear to auscultation bilaterally. No increased work of breathing. Symmetrical chest rise. No respiratory distress. Abdomen: Soft, nontender, nondistended. Bowel sounds present. Uterus: Uterine fundus firm, nontender, palpable at the level of the umbilicus. Surgical scar clean and healing well. Lower extremities: No lower extremity edema or swelling. No deep calf pain. Results & Data <Claudio Uriarte MD - Last Filed: 02/24/25 07:32> Vital Signs (Past 12 Hours) Vital Signs Temp Pulse Resp BP Pulse Ox O2 Del Method 02/23/25 23:35 36.9 C 86 18 138/84 98 Room Air 02/23/25 21:40 36.9 C 84 18 141/84 H 100 Room Air Supervising Physician <Marilee Garcia MD - Last Filed: 02/24/25 07:34> Co-Signing Physician Notes Resident Physician Supervision Note: I interviewed and examined the patient. Discussed with Dr. Landers and agree with findings and plan as documented in the note. Any exceptions or clarifications are listed here: [ ] Documented By: Marilee Garcia MD, FACOG Resident Activity Tracking <Claudio Uriarte MD - Last Filed: 02/24/25 07:32> Resident Involvement: Resident Care Provided Care Provided: Adult Hospital Medicine and OB Delivery
[2025-02-24] MEDS: MAGNESIUM HYDROXIDE SUSP 30 ML UDC PO PRN (06:35)
[2025-02-24] MEDS: guaiFENesin 600 MG TABCR PO SCH (07:47)
[2025-02-24 08:44] VITALS: BP 147/87; PULSE 81; RESP 16; TEMP 98.8; O2SAT 100
[2025-02-24] MEDS ORDERED: IBUPROFEN 600 MG TAB PO PRN (22:30)
[2025-02-25] MEDS ORDERED: ACETAMINOPHEN 325 MG TAB PO PRN (05:00)
== END 2025-02-24 13:10 | disposition home or self-care (01) | DRG 788 ==
LOC: OPB 16:29 → 4S1 16:31 → 4E2 02-23 01:25
DX: O77.8 Labor and delivery complicated by other evidence of fetal stress; Z3A.39 39 weeks gestation of pregnancy; F17.210 Nicotine dependence, cigarettes, uncomplicated; Z37.0 Single live birth; O75.0 Maternal distress during labor and delivery; O77.0 Labor and delivery complicated by meconium in amniotic fluid; O99.334 Smoking (tobacco) complicating childbirth; Z79.82 Long term (current) use of aspirin